=== PATIENT | male | born 1980 | race Caucasian/White ===

== ENCOUNTER 2022-10-21 15:05 | Emergency (ER) | payer OTHER, SELFPAY ==
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
[2022-10-21 15:10] VITALS: BP 147/87; PULSE 89; RESP 16; TEMP 36.8; O2SAT 97
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
== END 2022-10-21 18:21 | disposition home or self-care (01) ==
PROVIDERS: Emergency Provider Emergency Medicine
DX: S49.92XA Unspecified injury of left shoulder and upper arm, initial encounter (principal); V43.02XA Car driver injured in collision with other type car in nontraffic accident, initial encounter
CPT/HCPCS: 72040; 73030; 99283